=== PATIENT | female | born 1945 | race Caucasian/White ===

== ENCOUNTER → 2018-04-20 | Outpatient (CLI) | payer MEDICARE ==
[~2018-04-20] MED LIST: ASCO10004 PO; ASPI81TA45 PO; CHOL500015 PO; DULO30CA2 PO; DULO60CA55 PO; FAMO20TA7 PO; GABA300C10 PO; GLUC1000 PO; HYDR-3307 PO; LISI-167 PO; MELO15TA24 PO; MULT-658 PO; OMEP40CA6 PO; ONDA4TAB10 PO; PANT40TA3 PO; STRONTIUM CITRATE PO; TRAM50TA2 PO
[2018-04-20 14:48] LABS: ALANINE AMINOTRANSFERASE 23 U/L (12-78); ALBUMIN 3.6 g/dL (3.4-5.0); ANION GAP 5 mmol/L (5-15); CALCIUM 8.8 mg/dL (8.5-10.1); CHLORIDE 107 mmol/L (98-107); CREATININE 0.78 mg/dL (0.55-1.02)
[2018-04-20 14:50] LABS: ALKALINE PHOSPHATASE 103 U/L (45-117); BILIRUBIN,TOTAL 0.6 mg/dL (0.2-1.0); TOTAL PROTEIN 7.5 g/dL (6.4-8.2)
== END | disposition home or self-care (01) ==
LOC: STAR 13:31
PROVIDERS: ATTEND Thoracic Surgery (Cardiothoracic Vascular Surgery)
DX: Z01.818 Encounter for other preprocedural examination (principal)
CPT/HCPCS: 36415; 80053; 93005

== ENCOUNTER 2018-04-25 08:28 | Observation (INO) | payer MEDICARE ==
[~2018-04-25] VITALS: Ht 170.2 cm; Wt 80.4 kg
[~2018-04-25 08:28] MED LIST changes: +BUPIVACAINE/PF-EPI 0.5% 1:200K ONE
[2018-04-25] MEDS ORDERED: ONDANSETRON ODT 8 MG PO ONE (09:30)
[2018-04-25] MEDS ORDERED: GABAPENTIN 300 MG CAPSULE PO ONE (09:30)
[2018-04-25] MEDS ORDERED: LIDOCAINE-MPF 1%, 2ML INFIL ONE (09:30)
[2018-04-25] MEDS ORDERED: ACETAMINOPHEN 500 MG TABLET PO ONE (09:30)
[2018-04-25 09:35] VITALS: BP 141/83
[2018-04-25] MEDS ORDERED: MIDAZOLAM 1 MG/ML, 2ML ONE (10:10)
[2018-04-25] MEDS ORDERED: FENTANYL PF 250 MCG/5ML ONE (10:11)
[2018-04-25] MEDS: LACTATED RINGERS 1,000 ML IV SCH ×5 (10:19→19:51)
[2018-04-25] MEDS ORDERED: PHENYLEPHRINE 10 MG/ML ONE (11:16)
[2018-04-25] MEDS ORDERED: GLYCOPYRROLATE 0.2MG/1ML, 5ML ONE (11:49)
[2018-04-25] MEDS ORDERED: NEOSTIGMINE 1 MG/ML, 10ML ONE (11:49)
[2018-04-25] MEDS ORDERED: PROPOFOL 10 MG/ML, 20ML ONE (11:49)
[2018-04-25] MEDS ORDERED: ROCURONIUM 10MG/ML,5ML ONE (11:49)
[2018-04-25] MEDS ORDERED: CEFAZOLIN 1,000 MG ONE (11:49)
[2018-04-25] MEDS ORDERED: DEXAMETHASONE 4 MG/ML, 1ML ONE (11:49)
[2018-04-25] MEDS ORDERED: SUCCINYLCHOLINE 20 MG/ML, 10ML ONE (11:49)
[2018-04-25] MEDS ORDERED: SCOPOLAMINE PATCH, 1.5MG PATCH.TD72 TD PRN (12:00)
[2018-04-25] MEDS ORDERED: FENTANYL PF 100 MCG/2ML IV PRN (12:00)
[2018-04-25] MEDS ORDERED: ALBUTEROL/IPRATROPIUM 2.5MG/0.5MG, 3 ML NPPB PRN (12:00)
[2018-04-25] MEDS ORDERED: OXYcodone 5 MG/5 ML ORAL.SOL UDC PO PRN (12:00)
[2018-04-25] MEDS ORDERED: ONDANSETRON 2MG/ML, 2ML IV PRN (12:00)
[2018-04-25] MEDS ORDERED: MEPERIDINE/PF 25MG/0.5ML IVPush PRN (12:00)
[2018-04-25] MEDS ORDERED: PROMETHAZINE 25 MG/ML, 1ML IV PRN (12:00)
[2018-04-25] MEDS ORDERED: MIDAZOLAM 1 MG/ML, 2ML IV PRN (12:00)
[2018-04-25] MEDS ORDERED: METOPROLOL 1 MG/ML, 5ML IV PRN (12:00)
[2018-04-25] MEDS ORDERED: hydrALAzine 20 MG/ML, 1ML IV PRN ×2 (12:00→12:30)
[2018-04-25] MEDS ORDERED: ACETAMINOPHEN 650 MG SUPP PR PRN (12:30)
[2018-04-25] MEDS ORDERED: DIPHENHYDRAMINE 50 MG/ML, 1ML IV PRN (12:30)
[2018-04-25] MEDS ORDERED: KETOROLAC 30 MG/1 ML IV PRN (12:30)
[2018-04-25] MEDS ORDERED: PROMETHAZINE 25 MG/ML, 1ML IM PRN (12:30)
[2018-04-25] MEDS ORDERED: LORazepam 2 MG/ML, 1ML IV PRN (12:30)
[2018-04-25] MEDS ORDERED: ENALAPRILAT 1.25 MG/ML, 2ML IV PRN (12:30)
[2018-04-25] MEDS ORDERED: ONDANSETRON 2MG/ML, 2ML IVPush PRN (12:30)
[2018-04-25] MEDS ORDERED: morphine SULFATE 10 MG/ML, 1ML IV PRN (12:30)
[2018-04-25] MEDS ORDERED: PROMETHAZINE 12.5 MG SUPP PR PRN (12:30)
[2018-04-25] MEDS ORDERED: ACETAMINOPHEN 650 MG/20.3 ML UDC PO PRN (12:30)
[2018-04-25] MEDS ORDERED: hydrALAzine 20 MG/ML, 1ML ONE (12:40)
[2018-04-25] MEDS ORDERED: HYDROmorphone 2 MG/ML, 1ML ONE (12:40)
[2018-04-25] MEDS: HYDROmorphone 2 MG/ML, 1ML IVPush PRN ×2 (12:43→13:09)
[2018-04-25] MEDS ORDERED: LABETALOL 5MG/ML, 20ML IV PRN (13:30)
[2018-04-25 19:38] VITALS: BP 151/94
[2018-04-25] MEDS: FAMOTIDINE 20 MG/2 ML IV SCH (19:50)
[2018-04-25] MEDS: HYDROcodone/APAP 7.5-325MG/15ML UDC PO PRN (22:05)
[2018-04-26 00:01] VITALS: BP 153/90
[2018-04-26] MEDS: HYDROcodone/APAP 7.5-325MG/15ML UDC PO PRN ×2 (02:12→06:33)
[2018-04-26 04:05] VITALS: BP 152/89
[2018-04-26] MEDS: LACTATED RINGERS 1,000 ML IV SCH ×2 (04:25→07:47)
[2018-04-26 07:34] VITALS: BP 127/82
[2018-04-26] MEDS: FAMOTIDINE 20 MG/2 ML IV SCH (07:45)
[2018-04-26] MEDS ORDERED: ENOXAPARIN 40 MG/0.4 ML SQ SCH (09:00)
[2018-04-26] MEDS ORDERED: HYDR473S51 PO (10:21)
[2018-04-26 10:28] VITALS: BP 134/78
== END 2018-04-26 11:01 | disposition home or self-care (01) ==
LOC: OUT 08:28 → 4NOR 18:09 → OUT 18:15 → DCLOUNGE 04-26 10:52
PROVIDERS: ADMIT Thoracic Surgery (Cardiothoracic Vascular Surgery); ATTEND Thoracic Surgery (Cardiothoracic Vascular Surgery)
DX: K21.9 Gastro-esophageal reflux disease without esophagitis (principal); K22.70 Barrett's esophagus without dysplasia; K44.9 Diaphragmatic hernia without obstruction or gangrene
CPT/HCPCS: 43281; 96372; 96374; 96376; G0378; J0330; J0690; J1100; J1170; J1650; J2370; J2704; J2710; J3010; J3490; J7120; Q0162; J2250